=== PATIENT | female | born 1980 | race Caucasian/White ===

== ENCOUNTER 2017-01-31 07:34 | Day surgery (SDC) | payer BC ==
[2017-01-28 18:18] LABS: BASOPHILS 0.2 %; BASOPHILS ABSOLUTE 0.02 10/3/uL (0.0-0.16); EOSINOPHILS 1.3 %; EOSINOPHILS ABSOLUTE 0.13 10/3/uL (0.0-0.53); HEMOGLOBIN 12.6 g/dL (12.0-16.0); IMMATURE GRANULOCYTES 0.4 %; IMMATURE GRANULOCYTES ABSOLUTE 0.04 10/3/uL (0.0-0.11); LYMPHOCYTES ABSOLUTE 2.39 10/3/uL (0.67-4.30); MEAN CORPUSCULAR HEMOGLOB 29.8 pg (26.0-34.0); MEAN CORPUSCULAR VOLUME 85.1 fL (80-100); MONOCYTES 6.2 %; MONOCYTES ABSOLUTE 0.64 10/3/uL (0.21-1.20); NEUTROPHILS 68.9 %; NEUTROPHILS ABSOLUTE 7.18 10/3/uL (2.02-8.40); PLATELET COUNT 294 10/3/uL (150-400); RBC DISTRIBUTION WIDTH 13.5 % (12.0-16.0); RED CELL COUNT 4.23 10/6/uL (4.0-5.6); WHITE BLOOD CELLS 10.4 10/3/uL (4.5-10.5)
[2017-01-28 18:23] LABS: MANUAL DIFF NO %
[2017-01-28 18:34] LABS: ALBUMIN 3.3 G/DL (3.5-5.0); BUN (BLOOD UREA NITROGEN) 15 MG/DL (6-23); CALCIUM, SERUM 8.8 MG/DL (8.5-10.4); CHLORIDE, SERUM 112 MMOL/L (96-112); CO2 (CARBON DIOXIDE) 21 MMOL/L (24-34); CREATININE 0.94 MG/DL (0.55-1.02); GFR AFRICAN AMERICAN 90 ML/MIN (>=60); GFR NON AFRICAN AMERICAN 78 ML/MIN (>=60); POTASSIUM, SERUM 3.6 MMOL/L (3.5-5.3); SGOT(AST) 14 U/L (5-40); SGPT(ALT) 24 U/L (5-65); SODIUM, SERUM 142 MMOL/L (135-148); TOTAL BILIRUBIN 0.2 MG/DL (0-1.2); TOTAL PROTEIN 7.6 G/DL (6.0-8.5)
[2017-01-28 18:35] LABS: A/G RATIO 0.8 (0.7-1.9); ALKALINE PHOSPHATASE 99 U/L (45-117); GLOBULIN 4.3 G/DL (2.5-4.1); GLUCOSE, SERUM 94 MG/DL (60-99)
--- NOTE | ~2017-01-31 | OP ---
Record Of Operation [place] [id number] [place]. [address] NAME: REZA DELAROSA : 78 STATUS : [facility]#: [id number] AGE: 36 ADM/REG DATE : 01/31/17 MR#: [id number] REPORT SERV DATE: 01/31/17 DICTATED BY: RAOUL HARRISON III DATE: 01/31/17 REPORT STATUS : Draft TRANSCRIBED BY: MODL DATE: 01/31/17 DATE OF PROCEDURE: 01/31/2017 PREOPERATIVE DIAGNOSIS: Symptomatic acalculous cholecystitis with probable hepatic steatosis. POSTOPERATIVE DIAGNOSIS: Symptomatic acalculous cholecystitis with probable hepatic steatosis. PROCEDURE: Laparoscopic cholecystectomy. SURGEON: Raoul Harrison M.D. ANESTHESIA: General with intubation. COMPLICATIONS: None. ESTIMATED BLOOD LOSS: Less than 30 mL. SPECIMENS: Gallbladder. DRAINS: None. LAP AND SPONGE COUNT: Correct x3. BRIEF HISTORY: Ms. Delarosa presented with evidence for symptomatic acalculous cholecystitis. It was felt that laparoscopic cholecystectomy, possible laparotomy, was indicated. This procedure, the risks, benefits, and alternatives, including not limited to the risk for bleeding, infection, common bile duct injury, bile leak, retained common bile stone, enterotomy, or injury to any abdominal structure, the definite possible need for laparotomy, possible persistence of her symptoms unrelieved by surgery, possibility of postoperative diarrhea or incisional hernia, and unforeseen complications including deep venous thrombosis, pulmonary embolus, myocardial infarction, stroke, pneumonia, and , were fully and completely explained to the patient and family at length prior to surgery. The fact that this was a major operation with risk for major morbidity and mortality and no guarantee for relief of her symptoms were explained to them. The expected length of recovery with both open and laparoscopic procedures was explained. The patient had questions, which were answered. She fully understood the risks and agreed to surgery as planned. FINDINGS: The patient's gallbladder chakraborty were thickened and inflamed. There were adhesions between the gallbladder and the omentum consistent with cholecystitis. The liver was enlarged and had changes consistent with hepatic steatosis. The remainder of the upper abdomen was otherwise unremarkable as far as we could determine through the laparoscope. DESCRIPTION OF PROCEDURE: After being appropriately identified and after discussing the Record Of Operation [place] [id number] [facility]. [address] NAME: REZA DELAROSA : 78 STATUS : [facility] PAT#: [id number] AGE: 36 ADM/REG DATE : 01/31/17 MR#: [id number] REPORT SERV DATE: 01/31/17 DICTATED BY: RAOUL HARRISON III DATE: 01/31/17 REPORT STATUS : Draft TRANSCRIBED BY: MODL DATE: 01/31/17 risks of surgery with the patient and her family in the preoperative area, the patient was taken to the operating room and placed in the supine position on the operating room table. General anesthesia was administered. She was intubated without difficulty. The abdomen was prepped and draped sterilely in the usual fashion. After an appropriate "time-out" per [facility] standards, a small transverse incision was made below the umbilicus. The skin and fascia on either side was elevated with towel clips. A Veress needle was placed through the incision into the peritoneal cavity. Correct position of the needle in the peritoneal cavity was confirmed by the hanging drop test. The abdominal cavity was then insufflated to about 13 mmHg with carbon dioxide. Correct position of air in the peritoneal cavity was confirmed by palpation. The Veress needle was removed and replaced with 10 mm trocar. The laparoscope was placed through this. The patient was placed in the reverse Trendelenburg position and to her left. A second 10 mm trocar was placed just below the xiphoid process, to the right of the falciform ligament, under direct vision with the laparoscope. Two 5 mm trocars were placed along the right subcostal margin, one in the midaxillary line, the other in the midclavicular line. These were also placed under direct vision with the laparoscope. The upper abdomen was inspected. The gallbladder appeared to be chronically diseased. The gallbladder chakraborty were thickened and inflamed consistent chronic cholecystitis. The liver and remainder of the upper abdomen were otherwise unremarkable as far as we could determine through the laparoscope. The appropriate instruments were placed through the trocars. The gallbladder was grasped and the infundibulum of the gallbladder was retracted laterally and inferiorly so as to expose the triangle of Calot. Using careful sharp and blunt dissection, the cystic duct was carefully and meticulously defined proximally and distally. The cystic duct was fairly long. The junction of the cystic duct with the common bile duct was appreciated, but not skeletonized. The cystic artery was similarly defined proximally and distally. The fibrous and fatty tissue between these structures was divided so as to clearly identify the critical angle. Once these structures were clearly defined, the cystic duct was clipped using two clips on the common bile duct side and one on the gallbladder side, all placed as close to the gallbladder as possible, taking care not encroach upon or injure the common bile duct in any way. The cystic duct was then divided between these clips as close to the gallbladder as possible. We elected not to perform a cholangiogram because there was no preoperative or intraoperative evidence for biliary dilatation and because the patient's preoperative liver enzymes were normal and because her biliary anatomy was clearly defined. Again, the structure was not divided or clipped until the critical angle and triangle of Calot had been clearly identified. The cystic artery was then similarly clipped and divided as close to the gallbladder as possible. Using the spatula and the cautery, the gallbladder was carefully dissected from the liver bed. This went very well. Before the gallbladder was completely removed, the gallbladder bed and portal areas were irrigated numerous times with saline. The saline was aspirated dry. This process was repeated several times until hemostasis was meticulously and thoroughly assured in all areas. It was also assured that the clips in the portal areas were in good position and there was no extravasation of bile from any accessory bile duct. Once this was assured, the gallbladder was completely dissected away from the liver and placed in the Endopouch. The liver bed was elevated, irrigated, and inspected for meticulous and thorough hemostasis and for absence of any biliary extravasation and to be certain that the clips were in good position. Once this was assured, the gallbladder and Endopouch were brought out through the infraumbilical incision and placed in the laparoscope through the subxiphoid port. The fascia of the infraumbilical incision was closed with 0 Vicryl suture. The [facility] two Record Of Operation [place] [id number] [facility] [place]. [address] NAME: REZA DELAROSA : 78 STATUS : [facility]#: [id number] AGE: 36 ADM/REG DATE : 01/31/17 MR#: [id number] REPORT SERV DATE: 01/31/17 DICTATED BY: RAOUL HARRISON III DATE: 01/31/17 REPORT STATUS : Draft TRANSCRIBED BY: CHRISTIANO DATE: 01/31/17 trocars were removed. These two lower trocar sites were inspected on the underside for hemostasis with the laparoscope. Once this was assured, the subxiphoid trocar was removed under direct vision with the laparoscope to assure hemostasis in this incision. The air was removed from the peritoneal cavity through this incision. The skin incisions were inspected for hemostasis, they were closed with running subcuticular 4-0 Monocryl stitches. They were injected with one-half percent Marcaine. Dressings were applied. Anesthesia was reversed and the patient was taken to the recovery room in stable condition. The patient tolerated the procedure well. Her family was informed of the results of surgery. The patient will be discharged later when she is stable, comfortable and tolerating liquids and able to void and ambulate. Her family was advised that she should remain on a liquid diet today and advance this as tolerated to a regular diet tomorrow. She should keep wounds clean and dry for 48 hours and that she should not drive for 3 to 4 days after surgery or while using narcotics or Phenergan. They were advised that she should resume her usual medications. She was given a prescription for a narcotic and Phenergan, which she was advised to not take while driving. She was asked to return to the office in two weeks for followup or sooner for nausea, vomiting, fever, chills, wound drainage, abdominal pain, weakness, or other problems prior to that time. RHMalini/CHRISTIANO Raoul Harrison III, M.D. / [id number] CC: Patsy Bear III, M.D.
--- NOTE | ~2017-01-31 | PREOPHP ---
PreOp History and Physical [address] [address] NAME: REZA DELAROSA : [birth year] STATUS : [facility]#: [id number] AGE: 36 ADM/REG DATE : 01/31/17 MR#: [id number] REPORT SERV DATE: 02/03/17 DICTATED BY: RAOUL HARRISON III DATE: 02/02/17 REPORT STATUS : Draft TRANSCRIBED BY: MODL DATE: 02/02/17 (This is the second history and physical on this patient, which was dictated prior to surgery). HISTORY OF PRESENT ILLNESS: This 36-year-old female comes to the operating room for laparoscopic cholecystectomy, possible laparotomy, for symptomatic cholecystitis. The patient complains of a several-month history of intermittent episodes of right upper quadrant abdominal pain. The pain is in the right upper quadrant, and migrates to the right flank. The pain required evaluation in the emergency room for an acute biliary colic episode on one occasion. The patient has evidence for acalculous cholecystitis. She comes to the operating room now for laparoscopic cholecystectomy, possible laparotomy. PAST MEDICAL HISTORY: Anxiety, depression, dyspepsia, hypertension, and migraine headaches. MEDICATIONS: Duloxetine, estradiol, losartan, pantoprazole, and topiramate. ALLERGIES: LATEX. PAST SURGICAL HISTORY: Includes hysterectomy and diagnostic laparoscopy. FAMILY HISTORY: Positive for lymphoma, hypertension, and heart disease. SOCIAL HISTORY: No tobacco use. The patient does have a history of alcohol use. REVIEW OF SYSTEMS: The patient complains of depression. A 14-point review of systems is otherwise unremarkable. PHYSICAL EXAMINATION: GENERAL: This is an obese female, in no acute distress. She is alert and oriented x3. VITAL SIGNS: Blood pressure 124/81, pulse 83, and temperature 98.1. HEENT: Unremarkable. NEUROLOGIC: Cranial nerves 2 through 12 are normal. LUNGS: Clear. CARDIAC: Normal. ABDOMEN: Soft with some tenderness in the right upper quadrant. The remainder of the abdomen is soft and nontender. EXTREMITIES: Normal. LABORATORY DATA: HIDA scan shows an abnormal ejection fraction of 16%. Gallbladder ultrasound shows hepatomegaly and hepatic steatosis. ASSESSMENT: 1. A 36-year-old female with symptomatic acalculous cholecystitis. PreOp History and Physical [address] [address] NAME: REZA DELAROSA : [birth year] STATUS : [facility] PAT#: [id number] AGE: 36 ADM/REG DATE : 01/31/17 MR#: [id number] REPORT SERV DATE: 02/03/17 DICTATED BY: RAOUL HARRISON III DATE: 02/02/17 REPORT STATUS : Draft TRANSCRIBED BY: CHRISTIANO DATE: 02/02/17 2. Obesity. 3. Hepatic steatosis. 4. Depression. 5. Hypertension. 6. Migraine headaches. 7. Anxiety. PLAN: The patient comes to the operating room now for laparoscopic cholecystectomy, possible laparotomy. This procedure, the risks, benefits, and alternatives, including, but not limited to the risk for bleeding, infection, common bile duct injury, bile leak, retained common bile duct stone, enterotomy, or injury to any abdominal structures, the definite possible need for laparotomy, possible persistence of her symptoms unrelieved by surgery, possibility of postoperative diarrhea or incisional hernia, and unforeseen complications including deep venous thrombosis, pulmonary embolus, myocardial infarction, stroke, pneumonia, and , have been fully and completely explained to the patient at length prior to surgery. The fact that this is a major operation with risk for major morbidity and mortality and no guarantee for relief of her symptoms has been explained to her. The expected length of recovery with both open and laparoscopic procedures has been explained. The patient had questions which have been answered. She clearly understands the risks and agrees to surgery as planned. BRIANNA/CHRISTIANO Raoul Harrison III, M.D. / [id number]
[~2017-01-31 07:34] MED LIST: COZ25 PO; CYMBALTA60 PO; GYNODIOL2 MG PO; PROTONIX20 MG PO; TOPAMAX50 MG PO
[2017-01-31 14:40] LABS: HEMATOCRIT 35.5 % (36.0-48.0); HEMOGLOBIN 12.3 g/dL (12.0-16.0)
== END 2017-01-31 15:07 | disposition home or self-care (01) ==
LOC: SDC 07:34
PROVIDERS: Surgery
PROC: 0FT44ZZ Resection of Gallbladder, Percutaneous Endoscopic Approach (ICD-10-PCS; principal; 2017-01-31 09:00)
DX: K81.1 Chronic cholecystitis (principal); F41.9 Anxiety disorder, unspecified; F32.9 Major depressive disorder, single episode, unspecified; I10 Essential (primary) hypertension; G43.909 Migraine, unspecified, not intractable, without status migrainosus; E66.9 Obesity, unspecified; K76.0 Fatty (change of) liver, not elsewhere classified; K21.9 Gastro-esophageal reflux disease without esophagitis; Z79.899 Other long term (current) drug therapy; Z91.040 Latex allergy status; Z98.890 Other specified postprocedural states; Z90.710 Acquired absence of both cervix and uterus
CPT/HCPCS: 71020; 80053; 85014; 85018; 85025; 87641; 88304; 93005; A9270-GY; J0690; J1170; J1885; J2250; J2405; J2710; J3010